=== PATIENT | male | born 1960 | race Caucasian/White ===

== ENCOUNTER 2017-05-11 12:11 | Emergency (ER) | payer MEDICAID, OTHER ==
[2017-05-11] MEDS ORDERED: Ketorolac 60 MG/2 ML SDV IM ONE (12:51)
[2017-05-11] MEDS ORDERED: Ondansetron 4 MG Tab.DIS PO ONE (12:52)
[2017-05-11] MEDS ORDERED: HYDROmorphone 1 MG/ML Syringe IM ONE (12:52)
--- NOTE | 2017-05-11 12:56 | EDM.PDOC ---
ED HPI GENERAL MEDICAL PROBLEM - General Chief Complaint: Back Pain or Injury Stated Complaint: BACK PAIN Time Seen by Provider: 05/11/17 12:52 Source of Information: Reports: Patient, Old Records History Limitations: Reports: No Limitations - History of Present Illness INITIAL COMMENTS - FREE TEXT/NARRATIVE: HISTORY AND PHYSICAL: []57-year-old presents with lower back pain History of Present Illness: []Pain has worsened over the last 6 days. Patient was trying to "tough it out" the pain has increased to where he is hardly able to move. History of old compression fractures L4-L5 this is where his pain has been located Review of chart shows identification of degenerative disc disease L2-5 And healed compression fractures L4-5 Review of Systems: As per history of present illness and below otherwise all systems reviewed and negative. Past medical history: As per history of present illness and as reviewed below otherwise noncontributory. Surgical history: As per history of present illness and as reviewed below otherwise noncontributory. Social history: No reported history of drug or alcohol abuse. Family history: As per history of present illness and as reviewed below otherwise noncontributory. Physical exam: Alert and oriented male who is answering questions appropriately in full sentences without any shortness of breath. Patient denies any difficulty with voiding or having bowel movement. HEENT: Atraumatic, normocehpalic, pupils reactive, negative for conjunctival pallor or scleral icterus, mucous membranes moist, throat clear, neck supple, nontender, trachea midline. Lungs: Clear to auscultation, breath sounds equal bilaterally, chest non tender. Heart: S1S2, regular, negative for clicks, rubs, or JVD. Abdomen: Soft, nondistended, nontender. Negative for masses or hepatossplenmegaly. Negative for costovertebral tenderness. Pelvis: Stable nontender. Tenderness is noted towards the L4-L5 with palpation. There is mild radiculopathy to mid thigh on the left. Genitourinary: Deferred. Rectal: Deferred Extremities: Atraumatic, negative for cords or calf pain. Neurovascular unremarkable. Neuro: Awake, alert, oriented. Cranial nerves II through XII unremarkable. Cerebellum unremarkable. Motor and sensory unremarkable throughout. Exam nonfocal. Diagnostics: [Lumbar spine x-ray] Therapeutics: [Toradol IM Zofran ODT Dilaudid] Impression: [Low back pain L4-5] Plan: [Discharged home Flexeril 10 mg 3 times a day when necessary muscle spasms #12 Diclofenac Follow-up with primary care in the next 2 days If pain is not resolving will need to ask primary care about physical therapy referral] Definitive disposition and diagnosis as appropriate pending reevaluation and review of above. low back Pain Score (Numeric/FACES): 10 - Related Data Allergies Allergy/AdvReac Type Severity Reaction Status Date / Time acetaminophen [From Tylenol] Allergy Other Verified 05/11/17 12:28 Home Meds: Home Meds . [No Known Home Meds] 02/11/15 [History] Past Medical History - Past Health History Medical/Surgical History: Denies Medical/Surgical History - Past Surgical History GI Surgical History: Reports: Cholecystectomy, Hernia, Inguinal Other Neurological Surgeries/Procedures: "crushed back" Musculoskeletal Surgical History: Reports: Other (See Below) Other Musculoskeletal Surgeries/Procedures:: Left leg surgery, Back surgery Social & Family History - Family History Family Medical History: Noncontributory - Tobacco Use Smoking Status *Q: Never Smoker Years of Tobacco use: 28 - Recreational Drug Use Recreational Drug Use: Yes Drug Use in Last 12 Months: Yes Recreational Drug Type: Reports: Marijuana/Hashish Recreational Drug Use Frequency: Weekly ED ROS GENERAL - Review of Systems Review Of Systems: ROS reveals no pertinent complaints other than HPI. ED EXAM,LOWER BACK PAIN/INJURY - Physical Exam Exam: See Below (See dictation) Course - Vital Signs Last Recorded V/S: Last Vital Signs Temp 36.6 C 05/11/17 12:11 Pulse 64 05/11/17 12:11 Resp 18 05/11/17 12:11 BP 124/92 H 05/11/17 12:11 Pulse Ox - Orders/Labs/Meds Orders: Active Orders 24 hr Category Date Time Status Lumbar Spine 2 or 3V [CR] Stat Exams 05/11/17 12:49 Taken Meds: Medications Discontinued Medications Generic Name Dose Route Start Last Admin Trade Name Freq PRN Reason Stop Dose Admin Hydromorphone HCl 0.5 mg 05/11/17 12:52 Dilaudid IM 05/11/17 12:53 ONETIME ONE Ketorolac Tromethamine 60 mg 05/11/17 12:51 Toradol IM 05/11/17 12:52 ONETIME ONE Ondansetron HCl 4 mg 05/11/17 12:52 Zofran Odt PO 05/11/17 12:53 ONETIME ONE Departure - Departure Time of Disposition: 13:36 Disposition: Home, Self-Care 01 Condition: Good Clinical Impression: Low back pain - Discharge Information Referrals: PCP,None [Primary Care Provider] - Forms: ED Department Discharge - My Orders Last 24 Hours: My Active Orders 05/11/17 12:49 Lumbar Spine 2 or 3V [CR] Stat - Assessment/Plan Last 24 Hours: My Active Orders 05/11/17 12:49 Lumbar Spine 2 or 3V [CR] Stat
[2017-05-11 14:11] VITALS: BP 121/80
--- NOTE | 2017-05-12 16:49 | CR ---
EXAM DATE: 05/11/17 PATIENT'S AGE: 57 Patient: AMANDA TOSCANO Facility: [place], [place] Site . Site : [id number] Study: XRay Spine Lumbar [id number]/[id number] 1:07:50 PM Ordering Physician: Doctor Jose Final Report: INDICATION: Pain. Technique: Three standing views of the lumbar spine. Comparison: Report of CT of the abdomen and pelvis on 02/19/2015. Those images not available for review at the time of this dictation. Findings: Five lumbar type vertebral bodies. Levoscoliosis. Compression deformities at L3 and L4 described in 2014. Vertebral bodies otherwise normal in height. Pedicles , transverse processes, spinous processes are intact. Posterior osteophytes at L3 and L4 encroach upon the neural foramen. Mild to moderate disc space narrowing throughout the lumbar spine. Impression: 1. Compression deformities at L3 and L4 were present in 2014. 2. Posterior osteophytes at L3 and L4 encroach upon the neural foramen. 3. Levoscoliosis. 4. Mild to moderate disc space narrowing throughout the lumbar spine. Dictated by Victorino Devi MD @ May 11 2017 1:20PM (Electronic Signature) Report Signed by Proxy. KAIN
== END 2017-05-11 14:05 | disposition home or self-care (01) ==
LOC: MW.ED 12:11
DX: M54.5 Low back pain (principal); Z88.6 Allergy status to analgesic agent
CPT/HCPCS: 72100; 96372; 99283; A9270; J1170; J1885